=== PATIENT | male | born 1950 | race Caucasian/White ===

== ENCOUNTER → 2020-08-14 | Day surgery (SDC) | payer OTHER ==
[~2020-08-14] MED LIST: ABILIFY2 MG PO; ASPIRIN CHEWABL81 MG PO; CLARITIN10 MG PO; COREG25 MG PO; COZAAR50 MG PO; DAILY VALUE1 EACH PO; FISH OIL 1,2001 EAC2 PO; FLOMAX0.4 MG PO; KLONOPIN2 MG PO; MELATIN3 MG PO; NEXIUM40 MG PO; NORCO 5-325 TA1 EACH PO; PLAVIX75 MG PO; PRAVACHOL20 MG PO; RISPERDAL 1MG TA1 MG PO; RISPERIDONE2 M1 PO; SIMVASTATIN40 MG PO; ZANTAC150 MG PO; ZOLOFT 25MG TAB25 MG PO
== END | disposition home or self-care (01) ==
LOC: FAS 06:17
DX: Z12.11 Encounter for screening for malignant neoplasm of colon (principal); K29.80 Duodenitis without bleeding; K21.00 Gastro-esophageal reflux disease with esophagitis, without bleeding; K44.9 Diaphragmatic hernia without obstruction or gangrene; K21.9 Gastro-esophageal reflux disease without esophagitis; K57.30 Diverticulosis of large intestine without perforation or abscess without bleeding; I25.10 Atherosclerotic heart disease of native coronary artery without angina pectoris; I82.409 Acute embolism and thrombosis of unspecified deep veins of unspecified lower extremity; I10 Essential (primary) hypertension; E78.5 Hyperlipidemia, unspecified; M06.9 Rheumatoid arthritis, unspecified; F17.210 Nicotine dependence, cigarettes, uncomplicated; F20.9 Schizophrenia, unspecified; Z95.818 Presence of other cardiac implants and grafts; Z98.890 Other specified postprocedural states; Z79.899 Other long term (current) drug therapy; Z96.651 Presence of right artificial knee joint; Z20.822 Contact with and (suspected) exposure to COVID-19; Z90.49 Acquired absence of other specified parts of digestive tract; Z80.0 Family history of malignant neoplasm of digestive organs; Z88.1 Allergy status to other antibiotic agents
CPT/HCPCS: 88305; J2704; J7120